=== PATIENT | male | born 1950 | race Caucasian/White ===

== ENCOUNTER 2020-07-30 22:47 | Observation (INO) ==
[2020-07-31] MEDS ORDERED: Naloxone 0.4 MG/ML INJ IVP PRN (00:39)
[2020-07-31] MEDS ORDERED: Acetaminophen 325 MG TABLET PO PRN (00:39)
[2020-07-31] MEDS ORDERED: Ondansetron 4 MG/2 ML VIAL IVP PRN (00:39)
[2020-07-31] MEDS: 0.9 % Sodium Chloride 1,000 ML IVC SCH ×2 (01:22→08:52)
[2020-07-31] MEDS ORDERED: D5% in Water 1,000 ML IVC PRN (03:01)
[2020-07-31] MEDS ORDERED: *HR* Dextrose 50 % in Water (Vial) 50 ML VIAL IVP PRN (03:01)
[2020-07-31] MEDS ORDERED: Dextrose Gel 15 GM/37.5 ML TUBE PO PRN ×2 (03:01)
[2020-07-31] MEDS: Insulin LISPRO 300 UNITS/3 ML VIAL SUBQ SCH ×3 (03:28→12:41)
[2020-07-31 06:26] LABS: Basophils # 0.1 K/mcL (0.0-0.2); Basophils % 0.7 %; Eosinophils # 0.2 K/mcL (0.0-0.6); Eosinophils % 1.7 %; Hematocrit 48.1 % (37.5-50.1); Hemoglobin 15.8 g/dL (12.9-16.9); Immature Granulocytes % 0.3 % (0-4); Lymphocytes # 2.8 K/mcL (0.6-4.6); Lymphocytes % 32.1 %; Mean Corpuscular HGB Conc 32.8 g/dL (31.6-35.5); Mean Corpuscular Hemoglobin 30.7 pg (28.0-33.3); Mean Corpuscular Volume 93.6 fL (83.0-100.0); Monocytes # 0.9 K/mcL (0.0-1.3); Monocytes % 10.4 %; Neutrophils # 4.8 K/mcL (1.6-8.9); Platelet Count 171 K/mcL (140-400); Red Blood Count 5.14 M/mcL (4.19-5.50); Red Cell Distribution Width 12.6 % (11.5-14.5); Segmented Neutrophils % 54.8 %; White Blood Count 8.8 K/mcL (4.3-11.1)
[2020-07-31 06:42] LABS: BUN/Creatinine Ratio 17 (6-26); Blood Urea Nitrogen 19 mg/dL (8-23); Calcium 8.7 mg/dL (8.6-10.3); Carbon Dioxide 24 mEq/L (23-29); Chloride 107 mEq/L (98-107); Glucose 130 mg/dL (70-105); Osmolality,Calculated 288 (280-300); Potassium 4.1 mEq/L (3.5-5.1); Sodium 137 mEq/L (136-145); eGFR For African Americans > 60 (> 60); eGFR For Non-African Americans > 60 (> 60)
[2020-07-31 07:21] LABS: Bilirubin,Urine Negative (Negative); Blood,Urine Negative (Negative); Clarity,Urine Clear (Clear); Color,Urine Colorless (Yellow); Glucose,Urine (UA) Normal (Normal); Ketones,Urine Negative (Negative); Leukocyte Esterase,Urine Negative (Negative); Nitrite,Urine Negative (Negative); PH,Urine 6.5 pH Units (5.0-8.0); Protein,Urine Negative (Neg-Trace); Specific Gravity,Urine 1.009 (1.010-1.025); Urobilinogen,Urine Normal (Normal)
[2020-07-31 07:29] LABS: INR 1.1; Prothrombin Time 12.8 Seconds (9.4-12.1)
[2020-07-31 14:41] VITALS: BP 129/75
== END 2020-07-31 16:23 | disposition home or self-care (01) ==
LOC: 3BNU
PROVIDERS: ADMIT Student in an Organized Health Care Education/Training Program; ATTEND Student in an Organized Health Care Education/Training Program